=== PATIENT | female | born 1985 | race African-American/Black ===

== ENCOUNTER 2018-05-14 01:29 | Emergency (ER) | payer MEDICAID ==
[~2018-05-14] VITALS: Ht 157.5 cm; Wt 80.0 kg
[2018-05-14 02:15] LABS: BASOPHIL % 1.5 % (0-2); PLATELET COUNT 218 x10^3mcL (130-400)
[2018-05-14 02:20] LABS: CALCIUM 8.4 mg/dL (8.5-10.1); CHLORIDE SERUM 105 mmol/L (98-107); CREATININE SERUM 0.9 mg/dL (0.6-1.0); GFR1 > 60 mL/min; GLUCOSE SERUM 131 mg/dL (74-106); POTASSIUM SERUM 3.7 mmol/L (3.5-5.1); SODIUM SERUM 141 mmol/L (136-145)
[2018-05-14 02:24] LABS: ALKALINE PHOSPHATASE 78 U/L (46-116); ALT/SGPT 24 U/L (14-59); AST/SGOT 18 U/L (15-37); BILIRUBIN TOTAL 0.27 mg/dL (0.20-1.00); LIPASE 177 IU/L (73-393); TOTAL PROTEIN, SERUM 7.1 g/dL (6.4-8.2)
[2018-05-14 02:31] LABS: ALBUMIN 3.2 g/dL (3.4-5.0)
[2018-05-14 03:39] VITALS: BP 137/89
== END 2018-05-14 03:39 | disposition home or self-care (01) ==
LOC: ED 01:29
PROVIDERS: Emergency Medicine
DX: R10.9 Unspecified abdominal pain (principal)
CPT/HCPCS: 36415; 85378; J1885; J7030; Q0092

== ENCOUNTER 2019-01-06 08:18 | Emergency (ER) | payer SELFPAY ==
[~2019-01-06] VITALS: Ht 157.5 cm; Wt 76.2 kg
[2019-01-06 08:20] VITALS: BP 117/77; Ht 157.5 cm; Wt 76.2 kg
== END 2019-01-06 09:03 | disposition home or self-care (01) ==
LOC: ED 08:18
DX: S61.011A Laceration without foreign body of right thumb without damage to nail, initial encounter (principal); W26.8XXA Contact with other sharp object(s), not elsewhere classified, initial encounter; Y93.89 Activity, other specified; Y92.89 Other specified places as the place of occurrence of the external cause; Y99.8 Other external cause status